=== PATIENT | male | born 1985 | race Caucasian/White ===

== ENCOUNTER 2022-05-06 12:55 | Emergency (ER) | payer OTHER, BC ==
[2022-05-06] MEDS ORDERED: Acetaminophen/HYDROcodone 325-5 MG Tab PO ONE (13:03)
== END 2022-05-06 15:10 | disposition home or self-care (01) ==
LOC: MW.ED 12:55
DX: S42.021A Displaced fracture of shaft of right clavicle, initial encounter for closed fracture (principal); V29.9XXA Motorcycle rider (driver) (passenger) injured in unspecified traffic accident, initial encounter
CPT/HCPCS: 71045; 73030; 99284; A9270; 99283